=== PATIENT | male | born 1935 | race Caucasian/White ===

== ENCOUNTER 2016-06-08 05:12 | Observation (INO) | payer MEDICARE ==
--- NOTE | 2016-06-08 05:29 | ER Document Report ---
Doctor's Note Notes: 06/08/16 05:27 I performed a quick triage evaluation of the patient. Patient is an 81-year- old male presents with complaint of chest pain started suddenly while asleep. Says pain was substernal his lower chest. [place] like a pressure and heaviness. He did take nitroglycerin which relieved the pain. Paramedics did give him 324 mg of aspirin. No history of coronary disease. He did have a heart catheterization performed in [place] on July 2015 which was negative. Does have history of hypertension. He is not a smoker. He is currently chest pain- free and has no further concerns. EKG does not show any evidence of ST elevation [place]. 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 Patient will be checked out to morning ER physician who will be primary in his care.
[2016-06-08 05:32] LABS: ABSOLUTE BASOPHILS # (AUTO) 0.1 10^3/uL (0.0-0.2); ABSOLUTE EOSINOPHILS # (AUTO) 0.4 10^3/uL (0.0-0.6); ABSOLUTE LYMPHOCYTES (AUTO) 1.2 10^3/uL (0.5-4.7); ABSOLUTE MONOCYTES (AUTO) 0.6 10^3/uL (0.1-1.4); ABSOLUTE NEUT (AUTO) 2.6 10^3/uL (1.7-8.2); BASOPHILS % (AUTO) 2.2 % (0-2); EOSINOPHILS % (AUTO) 7.4 % (0-6); HEMATOCRIT 37.9 % (37.9-51.0); HEMOGLOBIN 13.3 g/dL (13.5-17.0); LYMPHOCYTES % (AUTO) 24.6 % (13-45); MEAN CORPUSCULAR HEMOGLOBIN 35.4 pg (27.0-33.4); MEAN CORPUSCULAR HGB CONC 35.1 g/dL (32.0-36.0); MEAN CORPUSCULAR VOLUME 101 fl (80-97); MONOCYTES % (AUTO) 12.3 % (3-13); RED BLOOD COUNT 3.76 10^6/uL (4.35-5.55); RED CELL DISTRIBUTION WIDTH 13.9 % (11.5-14.0); SEGMENTED NEUTROPHILS % (AUTO) 53.5 % (42-78); WHITE BLOOD COUNT 4.8 10^3/uL (4.0-10.5)
[2016-06-08 05:43] LABS: ALANINE AMINOTRANSFERASE 21 U/L (21-72); ALBUMIN 3.6 g/dL (3.5-5.0); ALKALINE PHOSPHATASE 48 U/L (38-126); ANION GAP 11 (5-19); ASPARTATE AMINO TRANSFERASE 13 U/L (17-59); BILIRUBIN,TOTAL 0.7 mg/dL (0.2-1.3); BLOOD UREA NITROGEN 18 mg/dL (7-20); CALCIUM 9.4 mg/dL (8.4-10.2); CARBON DIOXIDE 27 mmol/L (22-30); CHLORIDE 104 mmol/L (98-107); CREATINE KINASE 82 U/L (55-170); CREATININE RESULT 1.16 mg/dL (0.52-1.25); GLUCOSE 119 mg/dL (75-110); POTASSIUM 4.2 mmol/L (3.6-5.0); SODIUM 142.4 mmol/L (137-145); TOTAL PROTEIN 6.8 g/dL (6.3-8.2)
[2016-06-08 05:54] LABS: CREATINE KINASE MB 1.63 ng/mL (<4.55)
[2016-06-08 05:55] LABS: TROPONIN I < 0.012 ng/mL
[2016-06-08] MEDS ORDERED: MAG HYDROX/AL HYDROX/SIMETH SUSP 30 ML UDCUP PO PRN (08:10)
[2016-06-08] MEDS ORDERED: ONDANSETRON 4 MG TAB.RAPDIS PO PRN (08:10)
[2016-06-08] MEDS ORDERED: NITROGLYCERIN 0.4 MG/TAB 25 TAB/BOTTLE SL PRN (08:10)
--- NOTE | 2016-06-08 08:16 | ER Document Report ---
ED General - General Chief Complaint: Chest Pain Stated Complaint: CHEST PAIN TRAVEL OUTSIDE OF THE [place] IN LAST 30 DAYS: No - HPI Patient complains to provider of: chest pain Notes: Patient presents today for evaluation substernal chest pain pressure ongoing for the last few days. Patient states pain was intermittent until last night became more constant and increased in intensity. Patient took one sublingual nitroglycerin with resolution of the chest pain. Denies any nausea vomiting fevers chills states minimal shortness of breath however does not think this is associated with his chest pain states most time has minimal shortness of breath has a history of significant COPD. Patient was approximately a pack a day smoker but has quit now for her 20 year states has a history of hypertension but doesn't take any medications. Patient also states had a recent catheterization July 2015 showing no stentible lesions but does show some blockages approximately 50%. Patient otherwise follows up with Dr. Gabriel supervisor rose grading to perform the catheterization was Dr. Her and Aditya Riggs. - Related Data Allergies/Adverse Reactions: Penicillins Allergy (Verified 06/08/16 05:32) Past Medical History - Social History Smoking Status: Former Smoker Family History: Reviewed & Not Pertinent - Past Medical History Cardiac Medical History: Reports: Hx Hypertension - MEDS Denies: Hx Heart Attack Pulmonary Medical History: Denies: Hx Asthma Neurological Medical History: Denies: Hx Cerebrovascular Accident, Hx Seizures GI Medical History: Reports: Hx Ulcer, Hx Ulcerative Colitis. Denies: Hx Hepatitis, Hx Hiatal Hernia Psychiatric Medical History: Reports: Hx Anxiety Infectious Medical History: Denies: Hx Hepatitis Past Surgical History: Reports: Hx Cholecystectomy, Hx Orthopedic Surgery - Knee surgery, Hx Tonsillectomy. Denies: Hx Open Heart Surgery, Hx Pacemaker - Immunizations Hx Pneumococcal Vaccination: 02/05/15 Review of Systems - Review of Systems Constitutional: No symptoms reported EENT: No symptoms reported Cardiovascular: Chest pain Respiratory: No symptoms reported Gastrointestinal: No symptoms reported Genitourinary: No symptoms reported Male Genitourinary: No symptoms reported Musculoskeletal: No symptoms reported Skin: No symptoms reported Hematologic/Lymphatic: No symptoms reported Neurological/Psychological: No symptoms reported Physical Exam - Vital signs Vitals: Resp Pulse Ox 15 94 06/08/16 05:20 06/08/16 05:20 Interpretation: Normal - General General appearance: Appears well, Alert - HEENT Head: Normocephalic, Atraumatic Eyes: Normal Pupils: PERRL - Respiratory Respiratory status: No respiratory distress Chest status: Nontender Breath sounds: Normal Chest palpation: Normal - Cardiovascular Rhythm: Regular Heart sounds: Normal auscultation Murmur: No - Abdominal Inspection: Normal Distension: No distension Bowel sounds: Normal Tenderness: Nontender Organomegaly: No organomegaly - Back Back: Normal, Nontender - Extremities General upper extremity: Normal inspection, Nontender, Normal color, Normal ROM , Normal temperature General lower extremity: Normal inspection, Nontender, Normal color, Normal ROM , Normal temperature, Normal weight bearing. No: Dale's sign - Neurological Neuro grossly intact: Yes Cognition: Normal Orientation: AAOx4 Kristofer Coma Scale Eye Opening: Spontaneous [place] Coma Scale Verbal: Oriented [place] Coma Scale Motor: Obeys Commands Kristofer Coma Scale Total: 15 Speech: Normal Motor strength normal: LUE, RUE, LLE, RLE Sensory: Normal - Psychological Associated symptoms: Normal affect, Normal mood - Skin Skin Temperature: Warm Skin Moisture: Dry Skin Color: Normal Course - Re-evaluation Re-evalutation: 06/08/16 08:54 Patient coming in for evaluation chest pain. Initial EKG troponins are negative. Patient stories concerning with history of coronary vascular disease with pain relieved with nitroglycerin. Discussed with hospitalist service will observe for further evaluation. 06/08/16 08:54 - Vital Signs Vital signs: Temp Pulse Resp BP Pulse Ox 97.8 F 74 18 135/77 H 95 06/08/16 05:28 06/08/16 05:28 06/08/16 08:01 06/08/16 08:01 06/08/16 08:01 - Laboratory Result Diagrams: 06/08/16 05:18 06/08/16 05:18 Laboratory results interpreted by me: 06/08/16 06/08/16 05:18 05:18 RBC 3.76 L Hgb 13.3 L MCV 101 H MCH 35.4 H Plt Count 122 L Eosinophils % 7.4 H Basophils % 2.2 H Glucose 119 H AST 13 L Discharge - Discharge Clinical Impression: Chest pain Qualifiers: Chest pain type: unspecified Qualified Code(s): R07.9 - Chest pain, unspecified Condition: Good Disposition: ADMITTED OBSERVATION Admitting Provider: Hospitalist - [facility] Admitted: Telemetry
[2016-06-08] MEDS ORDERED: FINASTERIDE 5 MG TABLET PO SCH ×2 (09:00→22:00)
--- NOTE | 2016-06-08 09:24 | EKG REPORT ---
SEVERITY:- BORDERLINE ECG - SINUS RHYTHM BORDERLINE T ABNORMALITIES, INFERIOR LEADS : Confirmed by: Alexa Best 08-Jun-2016 09:23:49
[2016-06-08] MEDS ORDERED: FAMOTIDINE 20 MG TABLET PO ONE (09:30)
[2016-06-08] MEDS ORDERED: MG TRISILICATE/ALH/NAHCO3/AA CHEWABLE TABLET PO ONE (09:30)
[2016-06-08] MEDS ORDERED: TAMSULOSIN HCL 0.4 MG CAP.SR.24H PO SCH ×2 (10:00→22:00)
[2016-06-08] MEDS ORDERED: ASPIRIN 81 MG TABLET, ENT COATED PO SCH (10:00)
[2016-06-08 12:07] VITALS: BP 133/88
--- NOTE | 2016-06-08 12:59 | PDOC H&P ---
History of Present Illness Admission Date/PCP: 06/08/16 08:10 Patient complains of: Chest pain History of Present Illness: RHONA ROY is a 81 year old male to [facility]'s ED, after having intermittent midsternal chest pressure that began yesterday while at rest. He states the pain reoccurred last evening and did not go away. He therefore presented to the ED. He has had similar pain in the past. He had a cardiac catheterization in [place] 8 months ago that was normal except for a small 40% blockage. He states he was given nitroglycerin which did not change the pain. The pain has gradually improved on its own, but it is still somewhat present. He denies any history of hypertension, family history of CAD, tobacco use or diabetes. He denies any associated symptoms with the pain. He states the pain is burning in nature. He thinks it has to deal with him being anxious. He does have a history of mild GERD but does not take routine medications, and ulcerative colitis. Past Medical History Cardiac Medical History: Reports: Hyperlipidema Denies: Myocardial Infarction Pulmonary Medical History: Denies: Asthma EENT Medical History: Reports: None Neurological Medical History: Reports: None Denies: Seizures Endocrine Medical History: Reports: None Renal/ Medical History: Reports: None GI Medical History: Reports: Gastroesophageal Reflux Disease, Ulcerative Colitis Denies: Hepatitis, Hiatal Hernia Musculoskeltal Medical History: Reports: None Skin Medical History: Reports: None Psychiatric Medical History: Reports: None Traumatic Medical History: Reports: None Hematology: Reports: None Denies: Anemia, Sickle Cell Disease Infectious Medical History: Reports: None Past Surgical History Past Surgical History: Reports: Cardiac Catheterization - 8 months ago which was essentially normal, Cholecystectomy, Orthopedic Surgery - Knee surgery, Tonsillectomy Denies: Pacemaker Social History Information Source: Patient Lives with: Spouse/Significant other Smoking Status: Never Smoker Frequency of Alcohol Use: None Hx Recreational Drug Use: No Drugs: None Hx Prescription Drug Abuse: No - Advance Directive Resuscitation Status: Full Code Surrogate healthcare decision maker:: is 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 county 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 if he becomes incapacitated Family History Family History: None Parental Family History Reviewed: Yes Children Family History Reviewed: Yes Sibling(s) Family History Reviewed.: Yes Medication/Allergy Home Medications: Alprazolam [Xanax 0.25 mg Tablet] 0.25 mg PO DAILY 07/31/15 Azathioprine 4 tab PO DAILY 07/31/15 Finasteride 5 mg PO DAILY 07/31/15 Mesalamine [Lialda] 2 tab PO DAILY 07/31/15 Tamsulosin HCl 0.4 mg PO DAILY 07/31/15 Lisinopril 10 mg PO DAILY #30 tablet 08/01/15 Pravastatin Sodium 10 mg PO DAILY 04/15/16 Vitamin B Complex [B Complex] 1 each PO DAILY 04/15/16 Ranitidine HCl [Zantac] 300 mg PO DAILY #14 tablet 06/08/16 Allergies/Adverse Reactions: Penicillins Allergy (Verified 06/08/16 05:32) Review of Systems Constitutional: ABSENT: chills, fever(s), headache(s), weight gain, weight loss Eyes: ABSENT: visual disturbances Ears: ABSENT: hearing changes Cardiovascular: PRESENT: chest pain Respiratory: ABSENT: cough, hemoptysis Gastrointestinal: PRESENT: abdominal pain, heartburn Genitourinary: PRESENT: difficulty urinating. ABSENT: dysuria, hematuria Musculoskeletal: ABSENT: joint swelling Integumentary: ABSENT: rash, wounds Neurological: ABSENT: abnormal gait, abnormal speech, confusion, dizziness, focal weakness, syncope Psychiatric: PRESENT: anxiety Endocrine: PRESENT: as per HPI Hematologic/Lymphatic: ABSENT: easy bleeding, easy bruising Physical Exam Vital Signs: Temp Pulse Resp BP Pulse Ox 97.5 F 67 17 133/88 H 100 06/08/16 12:05 06/08/16 12:05 06/08/16 12:05 06/08/16 12:05 06/08/16 12:05 General appearance: PRESENT: no acute distress, well-developed, well-nourished Head exam: PRESENT: atraumatic, normocephalic Eye exam: PRESENT: conjunctiva pink, EOMI, PERRLA. ABSENT: scleral icterus Ear exam: PRESENT: normal external ear exam Neck exam: ABSENT: carotid bruit, JVD, lymphadenopathy, thyromegaly Respiratory exam: PRESENT: clear to auscultation [place]. ABSENT: rales, rhonchi, wheezes Cardiovascular exam: PRESENT: RRR. ABSENT: diastolic murmur, rubs, systolic murmur Pulses: PRESENT: normal dorsalis pedis pul Vascular exam: PRESENT: normal capillary refill GI/Abdominal exam: PRESENT: normal bowel sounds, soft. ABSENT: distended, guarding, mass, organolmegaly, rebound, tenderness Rectal exam: PRESENT: deferred Extremities exam: PRESENT: full ROM. ABSENT: calf tenderness, clubbing, pedal edema Neurological exam: PRESENT: alert, awake, oriented to person, oriented to place , oriented to time, oriented to situation, CN II-XII grossly intact. ABSENT: motor sensory deficit Psychiatric exam: PRESENT: appropriate affect, normal mood. ABSENT: homicidal ideation, suicidal ideation Skin exam: PRESENT: dry, intact, warm. ABSENT: cyanosis, rash Results Laboratory Results: 06/08/16 09:19 Troponin I < 0.012 Impressions: Chest X-Ray 06/08/16 05:13 IMPRESSION: NO ACUTE RADIOGRAPHIC FINDING IN THE CHEST. Assessment & Plan - Diagnosis (1) Chest pain Qualifiers: Chest pain type: unspecified Qualified Code(s): R07.9 - Chest pain, unspecified Is this a current diagnosis for this admission?: YesPlan: Pain is atypical for cardiac lasting hours in duration and coming on at rest. Most likely GERD He had an essentially normal heart catheterization 8 months ago. Will admit for observation obtain at least troponins, if they remain negative will discharge. Give Pepcid and Gaviscon in the meantime (2) GERD (gastroesophageal reflux disease) Qualifiers: Esophagitis presence: esophagitis presence not specified Qualified Code(s): K21.9 - Gastro-esophageal reflux disease without esophagitis Is this a current diagnosis for this admission?: YesPlan: Will order Zantac for discharge. Continue omeprazole daily (3) Anxiety Is this a current diagnosis for this admission?: YesPlan: Continue prn anxiolytic (4) Ulcerative (chronic) enterocolitis Qualifiers: Digestive disease complication type: unspecified complication Qualified Code(s): K51.019 - Ulcerative (chronic) pancolitis with unspecified complications Is this a current diagnosis for this admission?: YesPlan: Continue current medications (5) BPH (benign prostatic hyperplasia) Qualifiers: Prostatic enlargement morphology: unspecified morphology Lower urinary tract symptom presence: symptoms absent Qualified Code(s): N40.0 - Benign prostatic hyperplasia without lower urinary tract symptoms Is this a current diagnosis for this admission?: YesPlan: Continue current medications - Time Time Spent: 50 to 70 Minutes Critical Time spent with patient: 25-34 minutes Medications reviewed and adjusted accordingly: Yes Anticipated discharge: Home Within: within 24 hours
--- NOTE | 2016-06-08 13:22 | PDOC DISCHARGE SUMMARY ---
General - Admit/Disc Date/PCP Admission Date/Primary Care Provider: 06/08/16 08:10 Discharge Date: 06/08/16 - Discharge Diagnosis (1) Chest pain Is this a current diagnosis for this admission?: YesSummary: Pain atypical for cardiac. Troponins both < 0.12. Pain relieved with gaviscon, and zantac. Patient will continue to take omeprazole and zantac as needed. (2) GERD (gastroesophageal reflux disease) Is this a current diagnosis for this admission?: YesSummary: Continue omeprazole, zantac prn (3) Anxiety Is this a current diagnosis for this admission?: YesSummary: Continue anxiolytics (4) Ulcerative (chronic) enterocolitis Is this a current diagnosis for this admission?: YesSummary: Continue current medications (5) BPH (benign prostatic hyperplasia) Is this a current diagnosis for this admission?: Yes - Additional Information Resuscitation Status: Full Code Discharge Diet: Regular Discharge Activity: Activity As Tolerated, Balance Activity w/Rest Home Medications: Alprazolam [Xanax 0.25 mg Tablet] 0.25 mg PO DAILY 07/31/15 Azathioprine 4 tab PO DAILY 07/31/15 Finasteride 5 mg PO DAILY 07/31/15 Mesalamine [Lialda] 2 tab PO DAILY 07/31/15 Tamsulosin HCl 0.4 mg PO DAILY 07/31/15 Lisinopril 10 mg PO DAILY #30 tablet 08/01/15 Pravastatin Sodium 10 mg PO DAILY 04/15/16 Vitamin B Complex [B Complex] 1 each PO DAILY 04/15/16 Ranitidine HCl [Zantac] 300 mg PO DAILY #14 tablet 06/08/16 History of Present Illness Patient complains of: Midsternal chest pressure History of Present Illness: RHONA ROY is a 81 year old male to [facility] ED, after having intermittent midsternal chest pressure that began yesterday while at rest. He states the pain reoccurred last evening and did not go away. He therefore presented to the ED. He has had similar pain in the past. He had a cardiac catheterization in [place] 8 months ago that was normal except for a small 40% blockage. He states he was given nitroglycerin which did not change the pain. The pain has gradually improved on its own, but it is still somewhat present. He denies any history of hypertension, family history of CAD, tobacco use or diabetes. He denies any associated symptoms with the pain. He states the pain is burning in nature. He thinks it has to deal with him being anxious. He does have a history of mild GERD but does not take routine medications, and ulcerative colitis. Hospital Course Hospital Course: Patient was admitted by the hospitalist's service to telemetry. He had no further pain after zantac and gaviscon. His second troponin remained negative at < 0.12. Patient feels pain is more related to GERD and anxiety. Normal heart cath within one year ago in [place]. Will discharge home and he can follow up with his primary care provider. Physical Exam Vital Signs: Temp Pulse Resp BP Pulse Ox 97.5 F 67 17 133/88 H 100 06/08/16 12:05 06/08/16 12:05 06/08/16 12:05 06/08/16 12:05 06/08/16 12:05 General appearance: PRESENT: no acute distress, well-developed, well-nourished Head exam: PRESENT: atraumatic, normocephalic Eye exam: PRESENT: conjunctiva pink, EOMI, PERRLA. ABSENT: scleral icterus Ear exam: PRESENT: normal external ear exam Mouth exam: PRESENT: moist, tongue midline Neck exam: PRESENT: carotid bruit Respiratory exam: PRESENT: clear to auscultation [place]. ABSENT: rales, rhonchi, wheezes Cardiovascular exam: PRESENT: RRR. ABSENT: diastolic murmur, rubs, systolic murmur Pulses: PRESENT: normal dorsalis pedis pul Vascular exam: PRESENT: normal capillary refill GI/Abdominal exam: PRESENT: normal bowel sounds, soft. ABSENT: distended, guarding, mass, organolmegaly, rebound, tenderness Rectal exam: PRESENT: deferred Extremities exam: PRESENT: full ROM. ABSENT: calf tenderness, clubbing, pedal edema Neurological exam: PRESENT: alert, awake, oriented to person, oriented to place , oriented to time, oriented to situation, CN II-XII grossly intact. ABSENT: motor sensory deficit Psychiatric exam: PRESENT: appropriate affect, normal mood. ABSENT: homicidal ideation, suicidal ideation Skin exam: PRESENT: dry, intact, warm. ABSENT: cyanosis, rash Results Laboratory Results: 06/08/16 09:19 Troponin I < 0.012 Impressions: Chest X-Ray 06/08/16 05:13 IMPRESSION: NO ACUTE RADIOGRAPHIC FINDING IN THE CHEST. Qualifiers P[place]INT BEING DISCHARGED WITH ANY OF THE FOLLOWING DIAGNOSIS?: No Plan Discharge Plan: Home with family Time Spent: Less than 30 Minutes
[2016-06-08] MEDS ORDERED: LANSOPRAZOLE 15 MG TAB.RAP.DR PO SCH (17:00)
[2016-06-08] MEDS ORDERED: SIMVASTATIN 10 MG TABLET PO SCH (22:00)
== END 2016-06-08 12:27 | disposition home or self-care (01) ==
LOC: ER 05:12 → EH 08:10 → UNDOADMOB 08:22 → 3S 11:09
PROVIDERS: ADMIT Emergency Medicine; ATTEND Emergency Medicine
DX: R07.9 Chest pain, unspecified (principal); K21.9 Gastro-esophageal reflux disease without esophagitis; F41.9 Anxiety disorder, unspecified; K51.00 Ulcerative (chronic) pancolitis without complications; N40.0 Benign prostatic hyperplasia without lower urinary tract symptoms; E78.5 Hyperlipidemia, unspecified; Z98.61 Coronary angioplasty status
CPT/HCPCS: 93005; 99285; 36415; 82553; 82550; 85025; 80053; 84484; 71010; 93010; G0378 ×2; A9270; J3490

== ENCOUNTER → 2016-08-02 | Outpatient (CLI) | payer MEDICARE ==
[2016-08-02 12:12] LABS: ABSOLUTE BASOPHILS # (AUTO) 0.1 10^3/uL (0.0-0.2); ABSOLUTE EOSINOPHILS # (AUTO) 0.3 10^3/uL (0.0-0.6); ABSOLUTE LYMPHOCYTES (AUTO) 0.8 10^3/uL (0.5-4.7); ABSOLUTE MONOCYTES (AUTO) 0.5 10^3/uL (0.1-1.4); ABSOLUTE NEUT (AUTO) 3.6 10^3/uL (1.7-8.2); EOSINOPHILS % (AUTO) 4.8 % (0-6); HEMATOCRIT 37.9 % (37.9-51.0); HGB HCT DIFFERENCE 1.1; LYMPHOCYTES % (AUTO) 14.9 % (13-45); MEAN CORPUSCULAR HEMOGLOBIN 34.4 pg (27.0-33.4); MEAN CORPUSCULAR HGB CONC 34.4 g/dL (32.0-36.0); MEAN CORPUSCULAR VOLUME 100 fl (80-97); MONOCYTES % (AUTO) 10.2 % (3-13); RED BLOOD COUNT 3.79 10^6/uL (4.35-5.55); RED CELL DISTRIBUTION WIDTH 14.6 % (11.5-14.0); SEGMENTED NEUTROPHILS % (AUTO) 69.1 % (42-78); WHITE BLOOD COUNT 5.2 10^3/uL (4.0-10.5)
[2016-08-02 12:44] LABS: ALANINE AMINOTRANSFERASE 25 U/L (21-72); ALBUMIN 4.1 g/dL (3.5-5.0); ALKALINE PHOSPHATASE 47 U/L (38-126); ANION GAP 13 (5-19); ASPARTATE AMINO TRANSFERASE 15 U/L (17-59); BILIRUBIN,DIRECT 0.3 mg/dL (0.0-0.4); BILIRUBIN,TOTAL 0.6 mg/dL (0.2-1.3); BLOOD UREA NITROGEN 17 mg/dL (7-20); CALCIUM 9.3 mg/dL (8.4-10.2); CARBON DIOXIDE 24 mmol/L (22-30); CHLORIDE 106 mmol/L (98-107); CREATININE RESULT 0.96 mg/dL (0.52-1.25); GLUCOSE 84 mg/dL (75-110); POTASSIUM 4.8 mmol/L (3.6-5.0); SODIUM 142.9 mmol/L (137-145)
[2016-08-02 12:46] LABS: C-REACTIVE PROTEIN < 5.0 mg/L (<10.0)
[2016-08-02 12:50] LABS: ERYTHROCYTE SEDIMENTATION RATE 20 mm/hr (0-20)
== END ==
LOC: OD 10:36
PROVIDERS: ATTEND Pediatrics Pediatric Gastroenterology
DX: K51.90 Ulcerative colitis, unspecified, without complications (principal)
CPT/HCPCS: 36415; 80053; 82306; 85025; 85652; 86140

== ENCOUNTER 2017-12-15 10:07 | Emergency (ER) | payer MEDICARE ==
--- NOTE | 2017-12-15 10:43 | ER Document Report ---
ED Medical Screen (RME) - General Chief Complaint: Shortness Of Breath Stated Complaint: BLOOD PRESSURE ISSUE, SHORTNESS OF BREATH Time Seen by Provider: 12/15/17 10:41 Mode of Arrival: Wheelchair Information source: Patient, Relative TRAVEL OUTSIDE OF THE [place] IN LAST 30 DAYS: No - HPI Patient complains to provider of: weakness Onset: Other - pt states he has been lethargic, with low BP and SOB for the past 2 days. Denies CP - Related Data Allergies/Adverse Reactions: Penicillins Allergy (Verified 06/08/16 05:32) Past Medical History - Past Medical History Cardiac Medical History: Reports: Hx Hypercholesterolemia, Hx Hypertension - MEDS Denies: Hx Heart Attack Pulmonary Medical History: Denies: Hx Asthma Neurological Medical History: Denies: Hx Cerebrovascular Accident, Hx Seizures GI Medical History: Reports: Hx Gastroesophageal Reflux Disease, Hx Ulcer, Hx Ulcerative Colitis. Denies: Hx Hepatitis, Hx Hiatal Hernia Psychiatric Medical History: Reports: Hx Anxiety Infectious Medical History: Denies: Hx Hepatitis Past Surgical History: Reports: Hx Cardiac Catheterization - 8 months ago which was essentially normal, Hx Cholecystectomy, Hx Orthopedic Surgery - Knee surgery , Hx Tonsillectomy. Denies: Hx Open Heart Surgery, Hx Pacemaker Physical Exam - Vital signs Vitals: Temp Pulse Resp BP Pulse Ox 97.9 F 95 16 108/60 97 12/15/17 10:30 12/15/17 10:30 12/15/17 10:30 12/15/17 10:30 12/15/17 10:30 Course - Vital Signs Vital signs: Temp Pulse Resp BP Pulse Ox 97.9 F 95 16 108/60 97 12/15/17 10:30 12/15/17 10:30 12/15/17 10:30 12/15/17 10:30 12/15/17 10:30 Doctor's Discharge - Discharge Referrals: EILEEN YE MD [Primary Care Provider] - Follow up as needed
[2017-12-15 11:19] LABS: HEMATOCRIT 30.5 % (37.9-51.0); HEMOGLOBIN 10.7 g/dL (13.5-17.0); MEAN CORPUSCULAR HEMOGLOBIN 35.2 pg (27.0-33.4); MEAN CORPUSCULAR VOLUME 101 fl (80-97); PLATELET COUNT 285 10^3/uL (150-450); RED BLOOD COUNT 3.03 10^6/uL (4.35-5.55); RED CELL DISTRIBUTION WIDTH 15.3 % (11.5-14.0); WHITE BLOOD COUNT 5.5 10^3/uL (4.0-10.5)
--- NOTE | 2017-12-15 11:24 | RADIOLOGY REPORT (SQ) ---
EXAM DESCRIPTION: CHEST 2 VIEWS COMPLETED DATE/TIME: 12/15/2017 11:02 am REASON FOR STUDY: sob COMPARISON: 08/07/2015 EXAM PARAMETERS: NUMBER OF VIEWS: two views TECHNIQUE: Digital Frontal and Lateral radiographic views of the chest acquired. RADIATION DOSE: NA LIMITATIONS: none FINDINGS: LUNGS AND PLEURA: Chronic interstitial changes are suggested. There is slightly increased opacification in the left base. The left heart border is slightly blurred. MEDIASTINUM AND HILAR STRUCTURES: No masses or contour abnormalities. HEART AND VASCULAR STRUCTURES: Heart normal size. No evidence for failure. BONES: No acute findings. HARDWARE: None in the chest. OTHER: No other significant finding. IMPRESSION: Chronic lung changes. Cannot exclude limited lingular or left lower lobe pneumonia. TECHNICAL DOCUMENTATION: JOB ID: [id number] [employer]- All Rights Reserved Reading location - IP/workstation name: [email or web address]
[2017-12-15 11:52] LABS: ABSOLUTE LYMPHOCYTES# (MANUAL) 0.4 10^3/uL (0.5-4.7); ABSOLUTE MONOCYTES # (MANUAL) 0.2 10^3/uL (0.1-1.4); ABSOLUTE NEUTROPHILS# (MANUAL) 4.8 10^3/uL (1.7-8.2); ANISOCYTOSIS SLIGHT; BASOPHILS % (MANUAL) 0 % (0-2); EOSINOPHILS % (MANUAL) 1 % (0-6); LYMPHOCYTES % (MANUAL) 7 % (13-45); MONOCYTES % (MANUAL) 4 % (3-13); OVALOCYTES 1+; PLATELET COMMENT ADEQUATE; POIKILOCYTOSIS 1+; SEGMENTED NEUTROPHILS % (MAN) 88 % (42-78); TEAR DROP CELLS 1+; TOTAL CELLS COUNTED 100
[2017-12-15 12:00] LABS: CREATINE KINASE MB 1.18 ng/mL (<4.55); TROPONIN I 0.013 ng/mL
[2017-12-15 12:04] LABS: ALBUMIN 3.3 g/dL (3.5-5.0); ALKALINE PHOSPHATASE 48 U/L (38-126); ANION GAP 11 (5-19); ASPARTATE AMINO TRANSFERASE 32 U/L (17-59); BLOOD UREA NITROGEN 17 mg/dL (7-20); CALCIUM 8.9 mg/dL (8.4-10.2); CARBON DIOXIDE 27 mmol/L (22-30); CHLORIDE 102 mmol/L (98-107); GLUCOSE 139 mg/dL (75-110); POTASSIUM 4.3 mmol/L (3.6-5.0); SODIUM 140.1 mmol/L (137-145)
[2017-12-15 12:05] LABS: ALANINE AMINOTRANSFERASE 38 U/L (21-72); BILIRUBIN,DIRECT 0.3 mg/dL (0.0-0.4); BILIRUBIN,TOTAL 0.4 mg/dL (0.2-1.3); CREATINE KINASE 53 U/L (55-170); TOTAL PROTEIN 6.9 g/dL (6.3-8.2)
--- NOTE | 2017-12-15 12:19 | ER Document Report ---
ED General - General Mode of Arrival: Wheelchair TRAVEL OUTSIDE OF THE [place]. IN LAST 30 DAYS: No <RENETTA GIRARD - Last Filed: 12/15/17 12:19> <PAM BOWLES - Last Filed: 12/15/17 14:58> - General Chief Complaint: Blood Pressure Problem Stated Complaint: BLOOD PRESSURE ISSUE, SHORTNESS OF BREATH Time Seen by Provider: 12/15/17 10:41 - Related Data Allergies/Adverse Reactions: Penicillins Allergy (Verified 12/15/17 10:45) Past Medical History - General Information source: Patient, Relative - Social History Smoking Status: Former Smoker Family History: None Patient has suicidal ideation: No Patient has homicidal ideation: No - Past Medical History Cardiac Medical History: Reports: Hx Hypercholesterolemia, Hx Hypertension - MEDS Denies: Hx Heart Attack Pulmonary Medical History: Denies: Hx Asthma Neurological Medical History: Denies: Hx Cerebrovascular Accident, Hx Seizures Renal/ Medical History: Denies: Hx Peritoneal Dialysis GI Medical History: Reports: Hx Gastroesophageal Reflux Disease, Hx Ulcer, Hx Ulcerative Colitis. Denies: Hx Hepatitis, Hx Hiatal Hernia Psychiatric Medical History: Reports: Hx Anxiety Infectious Medical History: Denies: Hx Hepatitis Past Surgical History: Reports: Hx Cardiac Catheterization, Hx Cholecystectomy, Hx Orthopedic Surgery - Knee surgery, Hx Tonsillectomy. Denies: Hx Open Heart Surgery, Hx Pacemaker - Immunizations Hx Pneumococcal Vaccination: 02/05/15 <RENETTA GIRARD - Last Filed: 12/15/17 12:19> - Vital signs Vitals: Temp Pulse Resp BP Pulse Ox 97.9 F 95 16 108/60 97 12/15/17 10:30 12/15/17 10:30 12/15/17 10:30 12/15/17 10:30 12/15/17 10:30 Course - Laboratory Result Diagrams: 12/15/17 10:53 12/15/17 10:53 <RENETTA GIRARD - Last Filed: 12/15/17 12:19> - Laboratory Result Diagrams: 12/15/17 10:53 12/15/17 10:53 <PAM BOWLES - Last Filed: 12/15/17 14:58> - Vital Signs Vital signs: Temp Pulse Resp BP Pulse Ox 97.9 F 95 21 H 148/86 H 95 12/15/17 10:30 12/15/17 10:30 12/15/17 14:24 12/15/17 14:24 12/15/17 14:24 - Laboratory Laboratory results interpreted by me: 12/15/17 12/15/17 10:53 10:53 RBC 3.03 L Hgb 10.7 L Hct 30.5 L MCV 101 H MCH 35.2 H RDW 15.3 H Seg Neuts % (Manual) 88 H Lymphocytes % (Manual) 7 L Abs Lymphs (Manual) 0.4 L Glucose 139 H Creatine Kinase 53 L Albumin 3.3 L Discharge <RENETTA GIRARD - Last Filed: 12/15/17 12:19> <PAM BOWLES - Last Filed: 12/15/17 14:58> - Discharge Clinical Impression: Macrocytic anemia Hypotension Qualifiers: Hypotension type: unspecified hypotension type Qualified Code(s): I95.9 - Hypotension, unspecified Condition: Stable Disposition: HOME, SELF-CARE Additional Instructions: Your blood work shows you have what is called a macrocytic anemia. This is often due to vitamin B12 deficiency. You should follow-up with your doctor this week to discuss anemia studies to determine what is causing your type of anemia. You report your blood pressure is quite low in the morning hours and you take your blood pressure medication at bedtime. I would recommend that you decrease the dose of your losartan you take at bedtime by one half, then check your blood pressure when you get up in the morning and throughout the day. If the blood pressure begins to go high, take the other half of the losartan dose. Keep a log of your blood pressure readings and the time of day it is recorded for your doctor to review. RETURN TO THE EMERGENCY ROOM IF ANY NEW OR WORSENING SYMPTOMS. Referrals: EILEEN YE MD [Primary Care Provider] - Follow up as needed Scribe Attestation: 12/15/17 12:44 I personally performed the services described in the documentation, reviewed and edited the documentation which was dictated to the scribe in my presence, and it accurately records my words and actions. (PAM BOWLES)
[2017-12-15 15:18] VITALS: BP 139/72
--- NOTE | 2017-12-16 00:10 | EKG REPORT ---
SEVERITY:- BORDERLINE ECG - SINUS RHYTHM BORDERLINE T ABNORMALITIES, DIFFUSE LEADS : Confirmed by: Jumana Walter MD 16-Dec-2017 00:09:34
== END 2017-12-15 15:18 | disposition home or self-care (01) ==
LOC: ER 10:07
DX: D53.9 Nutritional anemia, unspecified (principal); I95.9 Hypotension, unspecified; R06.02 Shortness of breath; I10 Essential (primary) hypertension; Z88.0 Allergy status to penicillin
CPT/HCPCS: 36415; 71046; 80053; 82272; 82533; 82550; 82553; 84443; 84484; 85025; 93005; 93010; 99285

== ENCOUNTER → 2018-09-05 | Outpatient (CLI) | payer MEDICARE ==
[2018-09-05 09:04] LABS: ABSOLUTE EOSINOPHILS # (AUTO) 0.2 10^3/uL (0.0-0.6); ABSOLUTE MONOCYTES (AUTO) 0.5 10^3/uL (0.1-1.4); ABSOLUTE NEUT (AUTO) 2.5 10^3/uL (1.7-8.2); BASOPHILS % (AUTO) 0.5 % (0-2); EOSINOPHILS % (AUTO) 5.5 % (0-6); HEMATOCRIT 37.1 % (37.9-51.0); HEMOGLOBIN 12.9 g/dL (13.5-17.0); LYMPHOCYTES % (AUTO) 23.6 % (13-45); MEAN CORPUSCULAR HEMOGLOBIN 35.7 pg (27.0-33.4); MEAN CORPUSCULAR HGB CONC 34.8 g/dL (32.0-36.0); MEAN CORPUSCULAR VOLUME 102 fl (80-97); MONOCYTES % (AUTO) 12.3 % (3-13); PLATELET COUNT 123 10^3/uL (150-450); RED BLOOD COUNT 3.62 10^6/uL (4.35-5.55); RED CELL DISTRIBUTION WIDTH 14.5 % (11.5-14.0); SEGMENTED NEUTROPHILS % (AUTO) 58.1 % (42-78); TOTAL CELLS COUNTED % (AUTO) 100 %; WHITE BLOOD COUNT 4.3 10^3/uL (4.0-10.5)
[2018-09-05 09:16] LABS: ALANINE AMINOTRANSFERASE 22 U/L (21-72); ALBUMIN 3.8 g/dL (3.5-5.0); ALKALINE PHOSPHATASE 49 U/L (38-126); ANION GAP 10 (5-19); ASPARTATE AMINO TRANSFERASE 18 U/L (17-59); BILIRUBIN,DIRECT 0.2 mg/dL (0.0-0.4); BILIRUBIN,TOTAL 0.5 mg/dL (0.2-1.3); BLOOD UREA NITROGEN 20 mg/dL (7-20); CALCIUM 9.2 mg/dL (8.4-10.2); CARBON DIOXIDE 26 mmol/L (22-30); CHLORIDE 106 mmol/L (98-107); CHOLESTEROL 151.15 mg/dL (0-200); GLUCOSE 106 mg/dL (75-110); POTASSIUM 4.6 mmol/L (3.6-5.0); SODIUM 142.4 mmol/L (137-145); TOTAL PROTEIN 6.8 g/dL (6.3-8.2); TRIGLYCERIDES 90 mg/dL (<150)
[2018-09-05 09:26] LABS: DIRECT LDL 93 mg/dL (<100)
== END ==
LOC: OD 07:57
PROVIDERS: ATTEND Family Medicine Geriatric Medicine
DX: N40.1 Benign prostatic hyperplasia with lower urinary tract symptoms (principal); I10 Essential (primary) hypertension; K51.90 Ulcerative colitis, unspecified, without complications; Z79.899 Other long term (current) drug therapy
CPT/HCPCS: 36415; 80053; 80061; 84153; 84443; 85025

== ENCOUNTER → 2019-02-07 | Outpatient (CLI) | payer MEDICARE ==
[2019-02-07 11:03] LABS: ABSOLUTE EOSINOPHILS # (AUTO) 0.2 10^3/uL (0.0-0.6); ABSOLUTE LYMPHOCYTES (AUTO) 0.8 10^3/uL (0.5-4.7); ABSOLUTE MONOCYTES (AUTO) 0.8 10^3/uL (0.1-1.4); ABSOLUTE NEUT (AUTO) 2.9 10^3/uL (1.7-8.2); BASOPHILS % (AUTO) 0.5 % (0-2); EOSINOPHILS % (AUTO) 5.1 % (0-6); HEMATOCRIT 38.7 % (37.9-51.0); HEMOGLOBIN 13.2 g/dL (13.5-17.0); LYMPHOCYTES % (AUTO) 16.4 % (13-45); MEAN CORPUSCULAR HEMOGLOBIN 35.6 pg (27.0-33.4); MEAN CORPUSCULAR HGB CONC 34.2 g/dL (32.0-36.0); MEAN CORPUSCULAR VOLUME 104 fl (80-97); MONOCYTES % (AUTO) 16.3 % (3-13); PLATELET COUNT 114 10^3/uL (150-450); RED BLOOD COUNT 3.72 10^6/uL (4.35-5.55); SEGMENTED NEUTROPHILS % (AUTO) 61.7 % (42-78); TOTAL CELLS COUNTED % (AUTO) 100 %; WHITE BLOOD COUNT 4.8 10^3/uL (4.0-10.5)
[2019-02-07 11:46] LABS: ALBUMIN 3.9 g/dL (3.5-5.0); ALKALINE PHOSPHATASE 42 U/L (38-126); ANION GAP 8 (5-19); ASPARTATE AMINO TRANSFERASE 19 U/L (17-59); BILIRUBIN,DIRECT 0.2 mg/dL (0.0-0.4); BILIRUBIN,TOTAL 0.4 mg/dL (0.2-1.3); BLOOD UREA NITROGEN 17 mg/dL (7-20); CALCIUM 9.1 mg/dL (8.4-10.2); CARBON DIOXIDE 29 mmol/L (22-30); CHLORIDE 102 mmol/L (98-107); GLUCOSE 78 mg/dL (75-110); POTASSIUM 4.4 mmol/L (3.6-5.0); TOTAL PROTEIN 6.9 g/dL (6.3-8.2)
[2019-02-07 11:49] LABS: C-REACTIVE PROTEIN < 5.0 mg/L (<10.0); ERYTHROCYTE SEDIMENTATION RATE 22 mm/hr (0-20)
== END ==
LOC: OD 10:06
PROVIDERS: ATTEND Pediatrics Pediatric Gastroenterology
DX: K51.00 Ulcerative (chronic) pancolitis without complications (principal)
CPT/HCPCS: 36415; 80053; 85025; 85652; 86140

== ENCOUNTER → 2019-06-19 | Outpatient (CLI) | payer MEDICARE ==
[2019-06-19 14:40] LABS: ABSOLUTE EOSINOPHILS # (AUTO) 0.2 10^3/uL (0.0-0.6); ABSOLUTE LYMPHOCYTES (AUTO) 1.1 10^3/uL (0.5-4.7); ABSOLUTE MONOCYTES (AUTO) 0.6 10^3/uL (0.1-1.4); ABSOLUTE NEUT (AUTO) 4.6 10^3/uL (1.7-8.2); BASOPHILS % (AUTO) 0.5 % (0-2); EOSINOPHILS % (AUTO) 3.1 % (0-6); HEMATOCRIT 39.8 % (37.9-51.0); MEAN CORPUSCULAR HEMOGLOBIN 35.1 pg (27.0-33.4); MEAN CORPUSCULAR HGB CONC 35.1 g/dL (32.0-36.0); MEAN CORPUSCULAR VOLUME 100 fl (80-97); MONOCYTES % (AUTO) 8.7 % (3-13); PLATELET COUNT 143 10^3/uL (150-450); RED BLOOD COUNT 3.98 10^6/uL (4.35-5.55); RED CELL DISTRIBUTION WIDTH 13.8 % (11.5-14.0); SEGMENTED NEUTROPHILS % (AUTO) 70.7 % (42-78); TOTAL CELLS COUNTED % (AUTO) 100 %; WHITE BLOOD COUNT 6.5 10^3/uL (4.0-10.5)
[2019-06-19 16:49] LABS: ALKALINE PHOSPHATASE 58 U/L (38-126); ANION GAP 10 (5-19); ASPARTATE AMINO TRANSFERASE 24 U/L (17-59); BILIRUBIN,TOTAL 0.4 mg/dL (0.2-1.3); BLOOD UREA NITROGEN 15 mg/dL (7-20); CALCIUM 9.3 mg/dL (8.4-10.2); CARBON DIOXIDE 25 mmol/L (22-30); CHLORIDE 103 mmol/L (98-107); GLUCOSE 137 mg/dL (75-110); POTASSIUM 4.1 mmol/L (3.6-5.0); TOTAL PROTEIN 7.1 g/dL (6.3-8.2)
[2019-06-19 16:54] LABS: C-REACTIVE PROTEIN < 5.0 mg/L (<10.0)
== END ==
LOC: OD 13:38
PROVIDERS: ATTEND Pediatrics Pediatric Gastroenterology
DX: K51.00 Ulcerative (chronic) pancolitis without complications (principal)
CPT/HCPCS: 36415; 80053; 85025; 86140

== ENCOUNTER → 2019-12-30 | Outpatient (CLI) | payer MEDICARE ==
[2019-12-30 15:34] LABS: ABSOLUTE EOSINOPHILS # (AUTO) 0.2 10^3/uL (0.0-0.6); ABSOLUTE LYMPHOCYTES (AUTO) 0.9 10^3/uL (0.5-4.7); ABSOLUTE MONOCYTES (AUTO) 0.7 10^3/uL (0.1-1.4); ABSOLUTE NEUT (AUTO) 4.6 10^3/uL (1.7-8.2); BASOPHILS % (AUTO) 0.6 % (0-2); EOSINOPHILS % (AUTO) 3.2 % (0-6); HEMATOCRIT 38.7 % (37.9-51.0); HEMOGLOBIN 13.4 g/dL (13.5-17.0); LYMPHOCYTES % (AUTO) 13.7 % (13-45); MEAN CORPUSCULAR HEMOGLOBIN 34.3 pg (27.0-33.4); MEAN CORPUSCULAR HGB CONC 34.6 g/dL (32.0-36.0); MEAN CORPUSCULAR VOLUME 99 fl (80-97); MONOCYTES % (AUTO) 10.8 % (3-13); PLATELET COUNT 141 10^3/uL (150-450); RED CELL DISTRIBUTION WIDTH 13.7 % (11.5-14.0); SEGMENTED NEUTROPHILS % (AUTO) 71.7 % (42-78); TOTAL CELLS COUNTED % (AUTO) 100 %; WHITE BLOOD COUNT 6.5 10^3/uL (4.0-10.5)
[2019-12-30 16:09] LABS: ALBUMIN 4.2 g/dL (3.5-5.0); ALKALINE PHOSPHATASE 52 U/L (38-126); ANION GAP 10 (5-19); ASPARTATE AMINO TRANSFERASE 22 U/L (17-59); BILIRUBIN,DIRECT 0.3 mg/dL (0.0-0.4); BILIRUBIN,TOTAL 0.5 mg/dL (0.2-1.3); BLOOD UREA NITROGEN 20 mg/dL (7-20); C-REACTIVE PROTEIN 8.8 mg/L (<10.0); CALCIUM 9.1 mg/dL (8.4-10.2); CARBON DIOXIDE 26 mmol/L (22-30); CHLORIDE 103 mmol/L (98-107); GLUCOSE 117 mg/dL (75-110); POTASSIUM 4.4 mmol/L (3.6-5.0); TOTAL PROTEIN 7.1 g/dL (6.3-8.2)
[2019-12-30 16:11] LABS: ERYTHROCYTE SEDIMENTATION RATE 25 mm/hr (0-20)
== END ==
LOC: OD 13:59
PROVIDERS: ATTEND Pediatrics Pediatric Gastroenterology
DX: K51.019 Ulcerative (chronic) pancolitis with unspecified complications (principal); R06.00 Dyspnea, unspecified
CPT/HCPCS: 36415; 80053; 83880; 85025; 85652; 86140

== ENCOUNTER → 2019-12-30 | Outpatient (CLI) | payer MEDICARE ==
--- NOTE | 2019-12-30 15:22 | RADIOLOGY REPORT (SQ) ---
EXAM DESCRIPTION: CT CHEST WITHOUT IMAGES COMPLETED DATE/TIME: 12/30/2019 1:44 pm REASON FOR STUDY: ACUTE DYSPNEA (R06.00) R06.00 DYSPNEA, UNSPECIFIED COMPARISON: 08/07/2015 TECHNIQUE: CT scan performed of the chest without intravenous contrast. Images reviewed with lung, soft tissue and bone windows. Reconstructed coronal and sagittal MPR images reviewed. All images st ored on PACS. All CT scanners at this facility use dose modulation, iterative reconstruction, and/or weight based d osing when appropriate to reduce radiation dose to as low as reasonably achievable (ALARA). [facility]: Dose Right [facility]: CareDose [facility]: Dose Right [facility]: Teradose 4D [facility]: [employer] RADIATION DOSE: CT Rad equipment meets quality standard of care and radiation dose reduction techniq ues were employed. CTDIvol: 12.8 mGy. DLP: 469 mGy-cm. mGy. LIMITATIONS: No technical limitations. FINDINGS: LUNGS AND PLEURA: Scattered areas cysts mild centrilobular and paraseptal emphysema. Jackson tional bilateral peripheral interlobular septal thickening and scattered scarring. Scattered areas o f irregular consolidation within the lingula and right middle lobe. Largest discrete nodular opacity measures approximately 8 mm within the lingula (series 4, image 36). Mild pleural thickening along the right major fissure. Unchanged right basilar calcified nodule. No pleural effusion or pneumotho rax. HILAR AND MEDIASTINAL STRUCTURES: Scattered right hilar and mediastinal lymph nodes. No discrete ad enopathy unchanged dilation of the ascending aorta measuring up to 4.4 cm. HEART AND VASCULAR STRUCTURES: Normal heart size. Scattered calcified splenic granuloma. He was pr ior cholecystectomy. UPPER ABDOMEN: No significant findings. Limited exam. THYROID AND OTHER SOFT TISSUES: No masses. No adenopathy. BONES: No acute bony abnormality. No discrete lytic or blastic osseous lesions. HARDWARE: None in the chest. OTHER: No other significant findings. IMPRESSION: 1. No evidence of acute intrathoracic process. 2. Stable emphysematous and chronic interstitial scarring/ fibrosis in a nonspecific pattern. More focal nodular opacity within the lingula measuring 8 mm, possibly scarring. Follow-up as below. 3. Coronary atherosclerosis. 4. 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 COMMENT: [place] CRITERIA FOR FOLLOW-UP OF PULMONARY NODULES Incidentally detected new nodules in persons 35 or older. HIGH RISK: History of smoking or other known risk factors. 6-8 mm single solid nodule: LOW RISK: CT 6-12 mo; then consider CT 18-24 mo. HIGH RISK: CT 6-12 mo; t hen CT 18-24 mo. TECHNICAL DOCUMENTATION: JOB ID: [id number] Quality ID # [id number]: Final reports with documentation of one or more dose reduction techniques (e.g., Au tomated exposure control, adjustment of the mA and/or kV according to patient size, use of iterative reconstruction technique) 2010 [employer]- All Rights Reserved Reading location - IP/workstation name: [email or web address]
--- NOTE | 2019-12-30 18:56 | XCELERA REPORT ---
[address] [address] Transthoracic Echocardiogram Report Name: RHONA ROY Age: 84 yrs Gender: Male : 1935 Patient Status: Outpatient Patient Location: RAD Study Date: 12/30/2019 12:03 PM Height: 74 in Weight: 213 lb BSA: 2.2 m2 Procedure: A two-dimensional transthoracic echocardiogram with color flow and Doppler was performed. Study Quality: Poor. Reason For Study: DYSPNEA History: DYSPNEA. Ordering Physician: LEYDA CHEN Performed By: Kasandra Antony Interpretation Summary The left ventricle is normal in size. There is normal left ventricular wall thickness. LV EF is 65% Left ventricular systolic function is normal. Doppler measurements suggest impaired left ventricular relaxation, which is associated with grade I/IV or mild diastolic dysfunction The left ventricular wall motion is normal. There is no thrombus. cannot assess ASD,VSD,or PFO. The left atrium is mildly dilated. There is no evidence of mitral valve prolapse. There is no vegetation seen on the mitral valve. There is no mitral valve stenosis. There is a trace amount of mitral regurgitation There is no aortic valvular vegetation. There is no aortic valve stenosis No aortic regurgitation is present. There is no tricuspid stenosis. There is a trace amount of tricuspid regurgitation Tricuspid regurgitation jet envelope not well defined to measure RV systolic pressure accurately. The pulmonic valve is not well visualized. There is no pulmonic valvular stenosis. There is no pulmonic valvular regurgitation. The aortic root is not well visualized. The inferior vena cava was not visualized There is no pericardial effusion. MMode/2D Measurements & Calculations RVDd: 3.1 cm LVIDd: 4.4 cm FS: 30.0 % Ao root diam: 4.0 cm IVSd: 1.2 cm LVIDs: 3.1 cm EDV(Teich): Ao root area: LVPWd: 1.1 cm 86.4 ml 12.6 cm2 ESV(Teich): 36.8 ml EF(Teich): 57.4 % EDV(MOD-sp4): SV(MOD-sp4): 68.3 ml 46.2 ml ESV(MOD-sp4): 22.1 ml EF(MOD-sp4): 67.6 % Doppler Measurements & Calculations MV E max joann: MV dec slope: Ao V2 max: LV V1 max P.7 cm/sec 132.4 cm/sec 7.0 mmHg MV A max joann: 270.9 cm/sec2 Ao max PG: LV V1 max: 117.1 cm/sec MV dec time: 0.27 sec7.0 mmHg 132.1 cm/sec MV E/A: 0.63 PA V2 max: 94.0 cm/sec PA max P.5 mmHg Left Ventricle The left ventricle is normal in size. There is normal left ventricular wall thickness. LV EF is 65%. Left ventricular systolic function is normal. Doppler measurements suggest impaired left ventricular relaxation, which is associated with grade I/IV or mild diastolic dysfunction. The left ventricular wall motion is normal. There is no thrombus. cannot assess ASD,VSD,or PFO. Right Ventricle The right ventricle is not well visualized secondary to technical limitations. Atria Right atrium not well visualized secondary to technical limitations. The left atrium is mildly dilated. Mitral Valve There is no evidence of mitral valve prolapse. There is no vegetation seen on the mitral valve. There is no mitral valve stenosis. There is a trace amount of mitral regurgitation. Aortic Valve There is no aortic valvular vegetation. There is no aortic valve stenosis. No aortic regurgitation is present. Tricuspid Valve There is no tricuspid stenosis. There is a trace amount of tricuspid regurgitation. Tricuspid regurgitation jet envelope not well defined to measure RV systolic pressure accurately. Pulmonic Valve The pulmonic valve is not well visualized. There is no pulmonic valvular stenosis. There is no pulmonic valvular regurgitation. Great Vessels The aortic root is not well visualized. The inferior vena cava was not visualized. Effusions There is no pericardial effusion. : LEYDA CHEN Lakshmi
== END ==
LOC: RAD 12:48
PROVIDERS: ATTEND Internal Medicine Pulmonary Disease
DX: R06.00 Dyspnea, unspecified (principal)
CPT/HCPCS: 71250; 93306

== ENCOUNTER 2020-05-11 05:54 | Emergency (ER) | payer MEDICARE ==
--- NOTE | 2020-05-11 07:56 | EKG REPORT ---
SEVERITY:- BORDERLINE ECG - SINUS RHYTHM LEFT AXIS DEVIATION BORDERLINE T ABNORMALITIES, ANTERIOR LEADS : Confirmed by: Alexa Best 11-May-2020 07:55:10
--- NOTE | 2020-05-11 08:42 | ER Document Report ---
ED Cardiac - General Chief Complaint: Chest Pain Stated Complaint: CHEST PAIN Time Seen by Provider: 05/11/20 08:37 Primary Care Provider: LEYDA CHEN MD [ACTIVE PROVISIONAL STAFF] - Follow up as needed Notes: Patient is an 85-year-old male who comes emergency department for chief complaint of chest pain that started last night, he states he had constant discomfort in the left side of his chest which will not go away. He states he still feels the pain near the left nipple area. Pain does not radiate, nothing improves or exacerbates it that he can think of. He denies shortness of breath, nausea, vomiting, fever, cough. He states he does do exercises but he did not recall a specific injury. He states he had a negative cardiac catheterization several years ago, has never had an MO. He has COPD, former smoker, hypertension, BPH, ulcerative colitis. Primary provider Dr. Langford, does not have a historical interpreter. Denies medical history otherwise. TRAVEL OUTSIDE OF THE [place] IN LAST 30 DAYS: No - Related Data Allergies/Adverse Reactions: Penicillins Allergy (Verified 12/15/17 10:45) Home Medications: amilodipine, lialda, aziathone, flomax, finistraide, gabapentine, Past Medical History - General Information source: Patient - Social History Smoking Status: Former Smoker Frequency of alcohol use: None Drug Abuse: None Lives with: Family Family History: None, Reviewed & Not Pertinent - Past Medical History Cardiac Medical History: Reports: Hx Hypercholesterolemia, Hx Hypertension - MEDS Denies: Hx Heart Attack Pulmonary Medical History: Denies: Hx Asthma Neurological Medical History: Denies: Hx Cerebrovascular Accident, Hx Seizures Renal/ Medical History: Denies: Hx Peritoneal Dialysis GI Medical History: Reports: Hx Gastroesophageal Reflux Disease, Hx Ulcer, Hx Ulcerative Colitis. Denies: Hx Hepatitis, Hx Hiatal Hernia Psychiatric Medical History: Reports: Hx Anxiety Infectious Medical History: Denies: Hx Hepatitis Past Surgical History: Reports: Hx Cardiac Catheterization, Hx Cholecystectomy, Hx Orthopedic Surgery - Knee surgery, Hx Tonsillectomy. Denies: Hx Open Heart Surgery, Hx Pacemaker - Immunizations Hx Pneumococcal Vaccination: 02/05/15 Review of Systems - Review of Systems Constitutional: No symptoms reported EENT: No symptoms reported Cardiovascular: See HPI Respiratory: No symptoms reported Gastrointestinal: No symptoms reported Genitourinary: No symptoms reported Male Genitourinary: No symptoms reported Musculoskeletal: See HPI Skin: No symptoms reported Hematologic/Lymphatic: No symptoms reported Neurological/Psychological: No symptoms reported Physical Exam - Vital signs Vitals: Temp Pulse Resp BP Pulse Ox 98.4 F 87 20 122/55 L 96 05/11/20 06:27 05/11/20 06:27 05/11/20 06:27 05/11/20 06:27 05/11/20 06:27 - Notes Notes: GENERAL: Alert, interacts well. No acute distress. HEAD: Normocephalic, atraumatic. EYES: Pupils equal, round, and reactive to light. Extraocular movements intact. ENT: Oral mucosa moist, tongue midline. Oropharynx unremarkable. Airway patent. Nares patent, sinuses non-tender, ear canals unremarkable, TM's intact. NECK: Full range of motion. Supple. Trachea midline. No lymphadenopathy. LUNGS: Clear to auscultation bilaterally, no wheezes, rales, or rhonchi. No respiratory distress. Mild questionable chest wall tenderness specifically over the left breast area between the ribs. No severe tenderness or erythema noted. No signs of trauma. HEART: Regular rate and rhythm. No murmur ABDOMEN: Soft, non-tender. Non-distended. EXTREMITIES: Moves all 4 extremities spontaneously. No edema, normal radial and dorsalis pedis pulses bilaterally. No cyanosis. BACK: no cervical, thoracic, lumbar midline tenderness. No saddle anesthesia, normal distal neurovascular exam. Moves all extremities in full range of motion. NEUROLOGICAL: Alert and oriented x3. Normal speech. Cranial nerves II through XII grossly intact. Strength 5/5 in all extremities. PSYCH: Normal affect, normal mood. SKIN: Warm, dry, normal turgor. No rashes or lesions noted. Course - Re-evaluation Re-evalutation: Patient is asymptomatic on initial evaluation, alert, well-appearing, conversational. Giving aspirin, work-up pending. 05/11/20 10:20 Patient started complaining of chest pain again, he states it is still mild but it is specific in the left side. There does appear to be a degree of chest wall component although this is difficult because patient is not a clear historian. No severe tenderness. EKG repeated and there is no concerning change from prior. Questionable borderline T wave inversions anteriorly actually seem improved. Patient given small amount of nitroglycerin and will be re-evaluated. On reevaluation patient denies chest pain but states it stopped about an hour after the nitroglycerin. Does not appear to be specifically related to receivin g small amount of nitroglycerin. Second troponin negative. Remaining work-up unremarkable with chronic lung changes. Patient with no complaints and is requesting discharge. I spoke to his daughter, I will speak to Dr. Langford. I discussed potential admission because of patient's risk factors, age, nonspecific symptoms. However based on patient not wanting to be admitted, the risk of admitting patient to the hospital with many COVID-19 patients, and his very atypical symptoms with negative work-up, decision was made for patient to have very close follow-up in the office with testing outpatient instead. Patient is very satisfied with this plan, discussed return precautions, patient and family state understanding and agreement. - Vital Signs Vital signs: Temp Pulse Resp BP Pulse Ox 98.4 F 87 17 130/69 H 97 05/11/20 06:27 05/11/20 06:27 05/11/20 12:00 05/11/20 10:36 05/11/20 12:00 - Laboratory Results Result Diagrams: 05/11/20 08:43 05/11/20 08:43 Laboratory Results Interpreted: 05/11/20 05/11/20 08:43 08:43 RBC 3.90 L Hgb 13.4 L MCV 98 H MCH 34.3 H RDW 14.4 H Plt Count 123 L Lymph % (Auto) 10.9 L Creatine Kinase 53 L Critical Laboratory Results Reviewed: No Critical Results - Radiology Results Critical Radiology Results Reviewed: No Critical Results - EKG Interpretation by Me Additional EKG results interpreted by me: EKG shows sinus rhythm at a rate of 85, QTC 419, normal axis. Borderline T wave inversions anteriorly, borderline T waves in lead III, no ST segment changes in consecutive leads. Discharge - Discharge Clinical Impression: Chest pain of uncertain etiology Condition: Stable Disposition: HOME, SELF-CARE Additional Instructions: Your work-up was negative to this point. The exact cause of your pain is uncertain at this time. Please call Dr. Langford tomorrow to set up your close follow-up for additional testing and management. Come back if you worsen including difficulty breathing, fever, severe worsening pain, passing out, or any other concerning symptoms. Referrals: LEYDA CHEN MD [ACTIVE PROVISIONAL STAFF] - Follow up as needed
[2020-05-11] MEDS ORDERED: ASPIRIN 81 MG TABLET, CHEWABLE PO ONE (08:49)
[2020-05-11 08:55] LABS: ABSOLUTE BASOPHILS # (AUTO) 0.1 10^3/uL (0.0-0.2); ABSOLUTE EOSINOPHILS # (AUTO) 0.2 10^3/uL (0.0-0.6); ABSOLUTE LYMPHOCYTES (AUTO) 1.1 10^3/uL (0.5-4.7); ABSOLUTE MONOCYTES (AUTO) 1.3 10^3/uL (0.1-1.4); ABSOLUTE NEUT (AUTO) 7.1 10^3/uL (1.7-8.2); BASOPHILS % (AUTO) 0.6 % (0-2); EOSINOPHILS % (AUTO) 1.9 % (0-6); HEMATOCRIT 38.2 % (37.9-51.0); HEMOGLOBIN 13.4 g/dL (13.5-17.0); LYMPHOCYTES % (AUTO) 10.9 % (13-45); MEAN CORPUSCULAR HEMOGLOBIN 34.3 pg (27.0-33.4); MEAN CORPUSCULAR VOLUME 98 fl (80-97); MONOCYTES % (AUTO) 12.9 % (3-13); PLATELET COUNT 123 10^3/uL (150-450); RED CELL DISTRIBUTION WIDTH 14.4 % (11.5-14.0); SEGMENTED NEUTROPHILS % (AUTO) 73.7 % (42-78); TOTAL CELLS COUNTED % (AUTO) 100 %; WHITE BLOOD COUNT 9.7 10^3/uL (4.0-10.5)
--- NOTE | 2020-05-11 09:08 | RADIOLOGY REPORT (SQ) ---
EXAM DESCRIPTION: CHEST SINGLE VIEW IMAGES COMPLETED DATE/TIME: 05/11/2020 8:58 am REASON FOR STUDY: chest pain COMPARISON: 12/23/2019 EXAM PARAMETERS: NUMBER OF VIEWS: One view. TECHNIQUE: Single frontal radiographic view of the chest acquired. RADIATION DOSE: NA LIMITATIONS: None. FINDINGS: LUNGS AND PLEURA: Chronic pleural and parenchymal changes in the right upper lobe and left base. No acute consolidation. No pneumothorax or effusion. MEDIASTINUM AND HILAR STRUCTURES: No masses. Contour normal. HEART AND VASCULAR STRUCTURES: Heart normal in size. Normal vasculature. BONES: Prior total right shoulder arthroplasty. HARDWARE: None in the chest. OTHER: No other significant finding. IMPRESSION: Chronic pleural and parenchymal changes as described. No acute findings. TECHNICAL DOCUMENTATION: JOB ID: [id number] 2010 [employer]- All Rights Reserved Reading location - IP/workstation name: [email or web address]
[2020-05-11 09:20] LABS: ALBUMIN 3.9 g/dL (3.5-5.0); ALKALINE PHOSPHATASE 57 U/L (38-126); ANION GAP 5 (5-19); ASPARTATE AMINO TRANSFERASE 19 U/L (17-59); BILIRUBIN,DIRECT 0.2 mg/dL (0.0-0.4); BILIRUBIN,TOTAL 0.6 mg/dL (0.2-1.3); BLOOD UREA NITROGEN 15 mg/dL (7-20); CALCIUM 9.2 mg/dL (8.4-10.2); CARBON DIOXIDE 29 mmol/L (22-30); CHLORIDE 103 mmol/L (98-107); CREATINE KINASE 53 U/L (55-170); GLUCOSE 87 mg/dL (75-110); POTASSIUM 4.3 mmol/L (3.6-5.0); TOTAL PROTEIN 7.3 g/dL (6.3-8.2)
[2020-05-11 09:40] LABS: CREATINE KINASE MB 0.74 ng/mL (<4.55)
[2020-05-11 09:41] LABS: TROPONIN I < 0.012 ng/mL
[2020-05-11] MEDS ORDERED: NITROGLYCERIN 5 MG (0.2 MG/HR) PATCH.TD24 TD ONE (10:00)
[2020-05-11] MEDS ORDERED: NITROGLYCERIN 2% OINTMENT 1 GM PACKET TP ONE (10:01)
[2020-05-11 12:13] VITALS: BP 130/69
--- NOTE | 2020-05-11 14:55 | EKG REPORT ---
SEVERITY:- BORDERLINE ECG - SINUS RHYTHM LEFT AXIS DEVIATION BORDERLINE T ABNORMALITIES, ANTERIOR LEADS : Confirmed by: Alexa Best 11-May-2020 14:54:20
== END 2020-05-11 13:47 | disposition home or self-care (01) ==
LOC: ER 05:54
DX: R07.9 Chest pain, unspecified (principal); J44.9 Chronic obstructive pulmonary disease, unspecified; I10 Essential (primary) hypertension; N40.0 Benign prostatic hyperplasia without lower urinary tract symptoms; K51.90 Ulcerative colitis, unspecified, without complications; Z87.891 Personal history of nicotine dependence; Z79.899 Other long term (current) drug therapy
CPT/HCPCS: 93005; 99285; 36415; 82553; 82550; 85025; 80053; 84484; 71045; 93010; A9270 ×2